=== PATIENT | male | born 1970 | race Caucasian/White ===

== ENCOUNTER 2021-03-11 13:10 | Emergency (ER) | payer OTHER ==
[~2021-03-11] VITALS: Ht 182.9 cm; Wt 103.0 kg
[2021-03-11 15:05] VITALS: BP 158/88
[2021-03-11] MEDS ORDERED: LIDOCAINE 1%/EPI 1:100,000 20 ML VIAL. INJ ONE (15:30)
[2021-03-11] MEDS ORDERED: DIPH,PERTUSS(ACELL),TET VAC/PF 0.5 ML SYRINGE. VAX IM ONE (15:30)
--- NOTE | 2021-03-11 15:34 | PHYS DOC ---
Past Medical History Past Surgical History: No Surgical History General Adult EDM: Chief Complaint: LACERATION/AVULSION HPI: HPI: Patient is a 51 year old male who presents the ED today with right forearm laceration. Patient states a piece of a thread pipe cut his right forearm, patient is right-handed. Review of Systems: Review of Systems: Constitutional: Denies fever or chills. [] Musculoskeletal: Denies back pain or joint pain. [] Integument: Reports right forearm laceration Neurologic: Denies headache, focal weakness or sensory changes. [] Psychiatric: Denies depression or anxiety. [] Heart Score: C/O Chest Pain: N/A Risk Factors: Risk Factors: DM, Current or recent (<one month) smoker, HTN, HLP, family history of CAD, obesity. Risk Scores: Score 0 - 3: 2.5% MACE over next 6 weeks - Discharge Home Score 4 - 6: 20.3% MACE over next 6 weeks - Admit for Clinical Observation Score 7 - 10: 72.7% MACE over next 6 weeks - Early Invasive Strategies Current Medications: Current Medications Medications (Trade) Dose Ordered Sig/[place] Start Time Stop Time Status Last Admin Dose Admin Diphtheria/ Tetanus/Acell Pertussis (ADACEL TDap SYRINGE) 0.5 ml ONCE ONCE 03/11/21 15:30 03/11/21 15:31 Lidocaine/ Epinephrine (LIDOCAINE 1%-EPI 1:100,000 Multi-Dose) 20 ml 1X ONCE 03/11/21 15:30 03/11/21 15:31 Allergies: Allergies: Allergies Coded Allergies Type Severity Reaction Last Updated Verified Penicillins Allergy Mild 03/11/21 Yes Physical Exam: PE: Constitutional: Well developed, well nourished, no acute distress, non-toxic appearance. []] Skin: Ventral aspect of the right middle forearm with a circular laceration approximately 4 x 4 cm. There is no obvious tendon involvement. Full range of motion to the right forearm, right hand and fingers. Adequate radial, medial, ulnar sensation to the right hand. +2 right radial pulse. Cap refill less than 2 seconds of right fingers. Back: No tenderness, no CVA tenderness. [] Extremities: No tenderness, no cyanosis, no clubbing, ROM intact, no edema. [] Neurologic: Alert and oriented X 3, normal motor function, normal sensory function, no focal deficits noted. [] Psychologic: Affect normal, judgement normal, mood normal. [] Current Patient Data: Vital Signs: Vital Signs Date Time Temp Pulse Resp B/P (MAP) Pulse Ox O2 Delivery O2 Flow Rate FiO2 03/11/21 15:05 98.1 74 16 158/88 (111) 98 Room Air 98.1 EKG: EKG: [] Radiology/Procedures: Radiology/Procedures: Laceration/Wound Repair Wound Location: Right forearm Wound's Depth, Shape: Circular Wound Length (cm): Approximately 4 x 4 Wound Explored:yes Irrigated w/ Saline (ccs): 1000cc of NS Betadine Prep?: Y Anesthesia: 1% of lidocaine with epinephrine Volume Anesthetic (ccs): 12 cc Wound Repaired With: Ethilon Suture Size: 3.0 and 4.0 Number of Sutures: 11 interrupted sutures Progress : Wound was covered with nonstick dressing Course & Med Decision Making: Course & Med Decision Making Pertinent Labs and Imaging studies reviewed. (See chart for details) This a 51-year-old male patient with right forearm laceration that occurred today. Tetanus was updated. Laceration was closed by me as noted in proced ures. Wound care instructions and return precautions provided. This was a very dirty wound though i cleaned it with 1000cc of NS. I had to put patient on antibiotics prophylaxis Elio Disclaimer: Elio Disclaimer: This electronic medical record was generated, in whole or in part, using a voice recognition dictation system. Departure Departure Impression: Primary Impression: Laceration of right forearm Qualified Codes: S51.811A - Laceration without foreign body of right forearm, initial encounter Disposition: HOME / SELF CARE / HOMELESS Condition: STABLE Referrals: NO PCP (PCP) Follow-up with the ED or your own primary care doctor in 7 days for stitches to be removed Patient Instructions: Laceration Care, Adult, [id number] Additional Instructions: You have a laceration to your right forearm that was closed with stitches. Please remove the dressing in 24 hours. You can wash the area with regular soap and water once or twice a day, do not soak the area. Apply Neosporin to the area twice a day. Come back to the ED in 7 days for stitches to be removed or you can see your own primary care doctor. Monitor the area for any signs of infection including but not limited to increased redness, warmth, yellow drainage from the area, or any other concerning symptoms and return to the ED if they occur. Scripts Sulfamethoxazole/Trimethoprim (BACTRIM 400-80 MG TABLET) 1 Each Tablet 1 TAB PO BID for 10 Days, #20 TAB 0 Refills Prov: CORDELL MCNAMARA APRN 03/11/21 CORDELL MCNAMARA APRN Mar 11, 2021 15:34
[2021-03-11] MEDS ORDERED: SULF1TAB23 PO (16:19)
== END 2021-03-11 16:40 | disposition home or self-care (01) ==
LOC: ER 13:10
DX: S51.811A Laceration without foreign body of right forearm, initial encounter (principal); Z88.0 Allergy status to penicillin; Y28.8XXA Contact with other sharp object, undetermined intent, initial encounter; Y93.89 Activity, other specified; Y92.89 Other specified places as the place of occurrence of the external cause; Y99.8 Other external cause status
CPT/HCPCS: 12002; 90471; 90715; 99283; J3490